=== PATIENT | female | born 1975 | race Caucasian/White ===

== ENCOUNTER 2018-01-03 06:24 | Emergency (ER) | payer BC ==
[~2018-01-03] VITALS: Ht 157.5 cm; Wt 62.3 kg
[~2018-01-03 06:24] MED LIST: ATENOLOL25 MG PO; CYCLOBENZAPRINE10 MG PO; CYMBALTA60 MG PO; MOBIC7.5 MG PO; TRAMADOL HCL50 MG
[2018-01-03] MEDS ORDERED: MEDROL DOSEPAK4 MG PO (11:28)
[2018-01-03] MEDS ORDERED: ULTRAM50 MG PO (11:28)
[2018-01-03 11:55] VITALS: BP 101/68
== END 2018-01-03 11:45 | disposition home or self-care (01) ==
LOC: EME 06:24
DX: M51.27 Other intervertebral disc displacement, lumbosacral region (principal); G89.29 Other chronic pain; M79.7 Fibromyalgia; F17.200 Nicotine dependence, unspecified, uncomplicated
CPT/HCPCS: 72148; 99281; 99285; J1885; J2060; J3010; J7512